=== PATIENT | male | born 1940 | race Caucasian/White ===

== ENCOUNTER 2025-04-30 09:18 | Emergency (ER) | payer MEDICARE, OTHER, SELFPAY ==
--- NOTE | ~2025-04-30 | US_ITS ---
EXAMINATION: US TRIPLEX LOWER EXTREMITY, RIGHT CLINICAL INFORMATION: Edema and pain, right lower extremity COMPARISON: None available. TECHNIQUE: Color-flow triplex imaging with spectral analysis and compression Doppler were performed on the right lower extremity. FINDINGS: Respiratory variation, normal compression and augmented flow are demonstrated in the interrogated right common femoral vein, superficial femoral vein, profunda femoral vein, popliteal vein and midcalf peroneal and posterior tibial venous segments. There is no Hudson's cyst. US/US venous duplex LE RT IMPRESSION: No acute deep venous thrombosis interrogated veins, right lower extremity. Negative for DVT. Electronically signed by: Adam Culver MD 04/30/2025 11:18 AM EDT
[2025-04-30 09:24] VITALS: BP 166/68; PULSE 48; RESP 18; TEMP 36.3; O2SAT 97; BMI 27.7
--- NOTE | 2025-04-30 09:54 | ED_ITS ---
HPI - Extremity Problem General Chief complaint: Extremity Injury, Lower Stated complaint: R leg swelling Time Seen by Provider: 04/30/25 09:52 Source: patient Mode of arrival: ambulatory Limitations: no limitations History of Present Illness ED Provider: Zafar Estrada PA-C HPI Narrative: 84 yo male sent in from Urgent Care for evaluation of RLE redness, firmness and swelling for the last 2 weeks. He states he is very active and exercises 3 days per week. He walks long distances. He has noticed his right lower leg has been more swollen and firm with some slight redness. He states it is not painful. Denies any recent injury, insect bite, scratch to the area. He denies any fevers or chills. No chest pain or SOB. He was sent to r/o DVT. MD Complaint: extremity swelling Onset (ago): week(s) (2) Pain Consistency: constant Location: right and lower extremity Severity scale (1-10): 1 Radiation: none Relieving factors: nothing Exacerbating factors: nothing Associated symptoms: denies other symptoms Related Data Previous Rx's ?Medication ?Instructions ?Recorded cephalexin 500 mg capsule 500 mg PO Q6H 7 days #28 cap s 04/30/25 Allergies Allergy/AdvReac Type Severity Reaction Status Date / Time No Known Allergies Allergy Verified 04/30/25 09:26 Review of Systems 2 Review of Systems: Yes all other systems are reviewed and are negative [facility] Social History Social History Advance Directives: No Advance Directives Information Provided: Yes Physical Exam 2 Exam: Exam: Appearance: Alert. Oriented X3. No acute distress. Head: normocephalic, atraumatic. Eyes: normal to inspection ENT: Pharynx normal. Neck: Normal inspection. no JVD CVS: Bradycardic, regular rhythm. Pulses normal. Respiratory: No respiratory distress. Breath sounds normal. Abdomen: Soft and nontender. +BS x4 Skin: Skin warm and dry. Normal skin color. Normal skin turgor. No rashes. Extremities: right lower leg with mild generalized, nonpitting swelling, nontender to palpation, mild erythema, no warmth. dry flaking skin bilateral lower legs. no calf tenderness bilaterally. Neuro/psych: Oriented X 3. No motor deficit. No sensory deficit. CN II-XII intact. Normal speech and cognition. steady gait Vital Signs: Vital Signs: Last Vital Signs Temp 97.6 F 04/30/25 11:25 Pulse 47 L 04/30/25 11:25 Resp 16 04/30/25 11:25 BP 156/55 H 04/30/25 11:25 Pulse Ox 98 04/30/25 11:25 O2 Del Method Room Air 04/30/25 11:25 BMI result Body Mass Index 27.7 Medical Decision Making Medical Decision Making [facility] Narrative: 84 yo male presenting to the ER from Urgent Care for evaluation of RLE redness and swelling x2 weeks. Exam showing mild erythema and edema. US showed no DVT will treat for cellulitis. no MRSA risk, single coverage with keflex ok he has been bradycardic here wtih HR 48. BP stable 150-160s. he is asymptomtatic and feels well. he states he exercises several times per week. he cannot recall if he has had low heart rates in the past. denies cardiac issues EKG here with sinus bradycardia. no evidence of AV block. given he is asymptomatic with stable BP, comfortable with discharge home. he will f/u with his PCP. return precautions discussed and patient expressed clear understanding Differential Diagnosis Differential Diagnoses: The differential diagnosis associated with the presentation includes cellulitis, DVT, PVD, hematoma, soft tissue injury, lymphedema, tick borne illness sinus bradycardia, AV block, SSS Admission/Observation Consideration of admission/observation: Escalation of care including admission/observation considered Lab Data [facility] Lab Attestation statement: I reviewed the patient's lab results. anemia, elevated bicarb 04/30/25 09:50 04/30/25 09:50 Labs: Lab Results 04/30/25 Range/Units 09:50 WBC 5.0 (4.8-10.8) X10*3/uL RBC 5.15 (4.60-5.80) X10*6/uL Hgb 11.3 L (14.0-18.0) g/dl Hct 35.5 L (42.0-52.0) % MCV 68.9 L (80.0-98.0) fL MCH 21.9 L (27.0-33.0) pg MCHC 31.8 (31.0-36.0) g/dl RDW 15.8 (11.0-16.0) % Plt Count 185 (160-400) X10*3/uL MPV 11.3 (9.4-12.4) fL Immature Gran % (Auto) 0.2 (0.0-0.4) % Neut % (Auto) 62.6 (45-73) % Lymph % (Auto) 22.2 (20-40) % [place] % (Auto) 10.0 (2-11) % Eos % (Auto) 4.2 H (0-4) % Baso % (Auto) 0.8 (0-2) % Lymph # (Auto) 1.1 L (1.2-4.9) X10*3/uL [place] # (Auto) 0.5 (0.1-1.2) X10*3/uL Eos # (Auto) 0.2 (0.0-0.4) X10*3/uL Baso # (Auto) 0.0 (0.0-0.2) X10*3/uL Abs Immat Gran (auto) 0.01 (0.00-0.03) X10*3/uL Absolute Neuts (auto) 3.1 (2.0-8.3) x10*3/uL Absolute Nucleated RBC 0.000 (0.0-0.012) X10*3/uL Nucleated RBC % (auto) 0.0 (0.0-0.2) /100WBC Sodium 142 (135-145) mmol/L Potassium 4.0 (3.3-5.1) mmol/L Chloride 106 (96-108) mmol/L Carbon Dioxide 30 H (22-29) mmol/L Anion Gap 10 L (12-20) BUN 17 H (9-16) mg/dL Creatinine 1.16 (0.5-1.4) mg/dL Estim Creat Clear Calc 45.8 Estimated GFR > 60 Random Glucose 170 H (60-115) mg/dL Calcium 9.6 (8.4-10.2) mg/dL Total Bilirubin 0.9 (0.0-1.0) mg/dL AST 31 (5-37) U/L ALT 27 (0-40) U/L Alkaline Phosphatase 63 (39-117) U/L Total Protein 6.9 (6.5-8.0) g/dL Albumin 4.1 (3.5-5.0) g/dL Independent Interpretation I performed an independent interpretation of an: EKG and Ultrasound Interpretation: ekg w/ sinus bradycardia, HR 46 bpm, normal AK interval, no ectopy, no ST segment elevations or depressions US without evidence of DVT Radiology Impression Discussion of test interpretation with radiology: I have reviewed the radiologist's reading. Prescription Management I considered prescription management with: Antibiotic and Other (anticoagulant) Critical Care Time Critical Care Time Critical Care Time: No Discharge Plan Discharge Clinical Impression: Cellulitis of right lower extremity, Bradycardia, sinus Patient Disposition: Home, Self-Care Instructions: Cellulitis (ED), Bradycardia (ED) Additional Instructions: Your ultrasound was negative for blood clot in your leg Take the prescribed antibiotics as directed for mild cellulitis (infection of the skin), complete the entire course and do not miss any doses Keep your leg wrapped in the provided GLORY wrap during the day. You can take it off at night. Elevate your right leg when resting You were found to have a low heart rate. You have no symptoms of this (dizziness, lightheadeness, chest pain, shortness of breath) - if you develop these symptoms call 911 or come back to the ER for further evaluation Follow up with your primary care doctor as soon as you can If you develop new or worsening symptoms call 911 or come back to the ER for further evaluation. Prescriptions: New cephalexin 500 mg capsule 500 mg PO Q6H 7 Days Qty: 28 0RF Referrals: Maurisio Hubbard MD [Primary Care Provider, Internal Medicine] Interventions: ED Discharge Assessment Last Done: 04/30/25 12:11 Discharge Date/Time: 04/30/25 12:11 Print Language: Turkmen
--- NOTE | 2025-04-30 09:54 | ECG_ITS ---
Test Reason : POSSIBLE DVT Blood Pressure : */* mmHG Vent. Rate : 46 BPM Atrial Rate : 46 BPM P-R Int : 178 ms QRS Dur : 90 ms QT Int : 456 ms P-R-T Axes : 19 -9 11 degrees QTcB Int : 399 ms Sinus bradycardia Minimal voltage criteria for LVH, may be normal variant ( R in aVL ) Abnormal ECG No previous ECGs available Referred By: Halina Estrada Electronically Signed By: Ernie Titus
[2025-04-30 09:56] LABS: MANUAL DIFF FLAG NO
[2025-04-30 09:59] LABS: Hematocrit 35.5 % (42.0-52.0); Hemoglobin 11.3 g/dl (14.0-18.0); Imm Gran Abs Auto 0.01 X10*3/uL (0.00-0.03); Imm Gran Pct Auto 0.2 % (0.0-0.4); Lymphocytes Absolute Auto 1.1 X10*3/uL (1.2-4.9); Mean Corpuscular HGB Conc 31.8 g/dl (31.0-36.0); Mean Corpuscular Hemoglobin 21.9 pg (27.0-33.0); Mean Corpuscular Volume 68.9 fL (80.0-98.0); NRBC Abs Auto 0.000 X10*3/uL (0.0-0.012); NRBC Pct Auto 0.0 /100WBC (0.0-0.2); Platelet Count 185 X10*3/uL (160-400); Red Blood Count 5.15 X10*6/uL (4.60-5.80); White Blood Count 5.0 X10*3/uL (4.8-10.8)
[2025-04-30 10:11] LABS: Alanine Aminotransferase 27 U/L (0-40); Albumin Level 4.1 g/dL (3.5-5.0); Alkaline Phosphatase 63 U/L (39-117); Anion Gap 10 (12-20); Aspartate Amino Transferase 31 U/L (5-37); Blood Urea Nitrogen 17 mg/dL (9-16); Calcium 9.6 mg/dL (8.4-10.2); Carbon Dioxide 30 mmol/L (22-29); Chloride 106 mmol/L (96-108); Creatinine Clr Calc Pharmacy 45.8; Estimated Glomerular Filt Rate > 60; Potassium 4.0 mmol/L (3.3-5.1); Sodium 142 mmol/L (135-145); Total Protein 6.9 g/dL (6.5-8.0)
--- NOTE | 2025-04-30 10:59 | PC.NURSE ---
US at bedside
--- OUTSIDE RECORDS SUMMARY | 2025-04-30 11:13 | XMS_ITS | Encounter Summary ---
Author Organization [facility] Address [address] [place] [address] Phone Care Team Providers Care Boiler House Supervisor Name Role Phone Maurisio Hubbard MD Unavailable [phone] Bianka Shipley ASSISTANT ASSOCIATE PROFESSOR Unavailable [phone] Maurisio Hubbard MD Primary Care Provider [phone] Maurisio Hubbard MD Unavailable [phone] Rocael Saxena MD Unavailable Maurisio Hubbard MD Primary Care Provider [phone] Rocael Saxena MD Unavailable Encounter Details Date Type Department Care Team (Latest Contact Info) Description 02/21/2018 Transcribe Orders [facility] [address] [place], [place] [id number] Mauriiso Hubbard MD [address] [place], [place] [id number] [email or web address] Pure hypercholesterolemia (Primary Dx); Essential hypertension, benign Social History Tobacco Use Types Packs/Day Years Used Date Smoking Tobacco: Former Cigarettes 0.5 5 Smokeless Tobacco: Never Comments:quit in 1993 Alcohol Use Standard Drinks/Week Comments Yes 7 (1 standard drink = 0.6 oz pur e alcohol) Sex and Gender Information Value Date Recorded Sex Assigned at Not on file Legal Sex Male 10:11 PM EDT Gender Identity Not on file Sexual Orientation Not on file documented as of this encounter Plan of Treatment Upcoming Encounters Date Type Department Care Team (Late st Contact Info) Description 07/10/2025 10:30 AM EDT Office Visit [facility] Internal Medicine [address] [place] [address] Maurisio Hubbard MD [address] [place] [address] [email or web address] documented as of this encounter Results * Urinalysis (02/21/2018 8:51 AM EDT) COLOR Yellow Yellow [facility] CLARITY Clear [facility] GLUCOSE Negative Negative [facility] BILI Negative Negative [facility] KETONES Negative Negative [facility] SPECIFIC GRAVITY 1.025 1.005 - 1.030 [facility] BLOOD Negative Negative [facility] PH 6.0 5.0 - 8.0 [facility] Protein-UA Negative Negative [facility] NITRITE Negative Negative [facility] Leukocyte esterase, ur Negative Negative [facility] Urine (Urine) 02/21/2018 8:5 1 AM EDT 02/21/2018 8:53 AM EDT us Maurisio Hubbard MD URINE ORDERABLES Final Result [facility] [address] [place] [address] * Microalbumin/creatinine ratio, random urine (02/21/2018 8:51 AM EDT) URINE MICROALBUMIN 0.9 0 - 2.3 mg/dL [facility] URINE CREATININE 128 mg/dL [facility] MICROALB/CRE RATIO NOT CALCULATED 0 - 20 mg/g Cre [facility] Comment:due to Microalbumin <1.2 Urine (Urine) 02/21/2018 8:5 1 AM EDT 02/21/2018 8:53 AM EDT us Maurisio Hubbard MD URINE ORDERABLES Final Result Performing Organization Address [facility]/ZIP Co de Phone Number [address] [address] * (ABNORMAL) Hemoglobin A1c (02/21/2018 8:28 AM EDT) HEMOGLOBIN A1C 6.4(H) 4.3 - 5.8 % [facility] Blood 02/21/2018 8:28 AM EDT 02/21/2018 8:34 AM EDT us Maurisio Hubbard MD LAB BLOOD ORDERABLES Final Re sult Performing Organization Address [facility]/ZIP Co de Phone Number [address] [address] * TSH (02/21/2018 8:28 AM EDT) Pathologist [facility] TSH 2.62 0.27 - 4.20 uIU/mL [facility] Blood 02/21/2018 8:28 AM EDT 02/21/2018 8:34 AM EDT Maurisio Hubbard MD LAB BLOOD ORDERABLES Final Re sult Performing Organization Address [facility] Co de Phone Number [address] [address] * (ABNORMAL) Comprehensive metabolic panel (02/21/2018 8:28 AM EDT) SODIUM 146 133 - 146 mmol/L [facility] POTASSIUM 4.5 3.3 - 5.1 mmol/L [facility] CHLORIDE 104 96 - 108 mmol/L [facility] CO2 29 21 - 35 mmol/L [facility] BUN 15 6 - 19 mg/dL [facility] CREATININE 1.10 0.5 - 1.5 mg/dL [facility] GLUCOSE 122(H) 70 - 99 mg/dL [facility] ALBUMIN 4.2 3.9 - 4.8 g/dL [facility] TOTAL PROTEIN 7.4 6.5 - 8.0 g/dL [facility] CALCIUM 8.9 8.4 - 10.3 mg/dL [facility] ALKALINE PHOSPHATASE 73 39 - 117 U/L [facility] TOTAL BILIRUBIN 0.8 0.0 - 1.2 mg/dL [facility] AST 29 0 - 37 U/L [facility] ALT 27 0 - 40 U/L [facility] GLOBULIN 3.2 1 - 4.8 g/dL [facility] EGFR 65 >59 mL/min/1.7 3m2 [facility] Comment:If patient is black, multiply result by 1.159. The eGFR calculation has changed from the MDRD equation to the CKD-EPI equation as of November 20, 2017. ANION GAP 18 10 - 20 mmol/L [facility] Blood 02/21/2018 8:28 AM EDT 02/21/2018 8:34 AM EDT us Maurisio Hubbard MD LAB BLOOD ORDERABLES Final Re sult Performing Organization Address City/[facility] Co de Phone Number [address] [address] * (ABNORMAL) Lipid panel (02/21/2018 8:28 AM EDT) HDL 50 mg/dL [facility] Comment: Interpretation: Risk Level Males Decreased >45 mg/dL Average 40-45 mg/dL Increased <40 mg/dL CHOLESTEROL 110 0 - 240 mg/dL [facility] TRIGLYCERIDES 55 30 - 160 mg/dL [facility] LDL 49(L) 50 - 129 mg/dL [facility] Comment: LDL levels in terms of risk for coronary heart disease: <100 mg/dL: Optimal 100-129 mg/dL: Near or above optimal 130-159 mg/dL: Borderline high 160-189 mg/dL: High >190 mg/dL: Very High CARDIAC RISK RATIO 2.2(L) 3.4 - 5.0 [facility] Blood 02/21/2018 8:28 AM EDT 02/21/2018 8:34 AM EDT Maurisio Hubbard MD LAB BLOOD ORDERABLES Final Re sult Performing Organization Address City/State/[facility] Co de Phone Number [address] [address] * (ABNORMAL) CBC (02/21/2018 8:28 AM EDT) WBC 4.83 3.40 - 11.20 K/uL [facility] RBC 6.08(H) 4.50 - 5.50 M/uL [facility] HGB 12.6(L) 13.0 - 17.0 g/dL [facility] HCT 41.6 40.0 - 51.0 % [facility] PLT 203 130 - 400 K/uL [facility] MCV 68.4(L) 79.0 - 98.0 fL [facility] MCH 20.7(L) 27.0 - 34.8 pg [facility] MCHC 30.3(L) 31.5 - 36.0 g/dL [facility] RDW 16.0(H) 10.8 - 14.6 % [facility] MPV 11.6 9.4 - 12.4 [facility] NRBC 0.00 /100 WBCs [facility] ABSOLUTE NRBC 0.00 K/uL [facility] Blood 02/21/2018 8:28 AM EDT 02/21/2018 8:34 AM EDT us Maurisio Hubbard MD LAB BLOOD ORDERABLES Final Re sult Performing Organization Address [facility] Co de Phone Number [address] [address] documented in this encounter Visit Diagnoses Diagnosis Pure hypercholesterolemia- Primary Essential hypertension, benign documented in this encounter Care Teams Boiler House Supervisor Relationship Specialty Start Date End Date Maurisio Hubbard MD [address] [place] [address] [email or web address] PCP - General 08/16/17 08/16/20 Maurisio Hubbard MD [address] [place] [address] PCP - General Internal Medicine 08/17/20 Maurisio Hubbard MD [address] [place] [address] Historical LMR Provider 07/07/17 01/18/21 Bianka Shipley NP [address] [place] [address] [address] [place] [address] Historical LMR Provider 07/07/17 01/18/21 Maurisio Hubbard MD [address] [place] [address] Insurance Assigned Provider 12/22/23 Rocael Saxena MD [address] [place] [address] Ophthalmology 01/13/20 02/28/24 Rocael Saxena MD [address] [place] [address], [address] [address] Ophthalmology 02/29/24 documented as of this encounter Additional Source Comments The information contained in this document represents components of the legal health record. It is not the complete legal health record.[facility]
--- OUTSIDE RECORDS SUMMARY | 2025-04-30 11:13 | XMS_ITS | Patient Health Record ---
Author Organization [facility] Address [address] [place] [address] Care Team Providers Care Home Appliance Tech Name Role Phone Maurisio Hubbard MD Primary Care Provider Ryan Arzola Jr Unavailable Reason For Referral No Information Medications Medication SIG (Take, Route, Frequency, Duration) Notes Start Date End Date Status Valsartan 160 MG TAKE 1 TABLET BY FREDY EVERY DAY Oral for 90 Active Tamsulosin HCl 0.4 MG Orally Once a day Active Colyte with Flavor Packs 240 GM As directed Orally Over the specified time. for 1 day(s) Active Folic Acid 400 MCG 1 capsule Orally Onc e a day Active amLODIPine Besylate 5 MG Orally Active Aspir-81 81 MG 1 tablet Orally Once a day Active Atorvastatin Calcium 20 MG Orally Once a day Active Social History Alcohol Screen Question Answer Notes Did you have a drink contain ing alcohol in the past year? Yes How often did you have a dri nk containing alcohol in the past year? 2 to 3 times a week (3 points) How many drinks did you have on a typical day when you were drinking in the past year? 1 or 2 drinks (0 point) How often did you have 6 or more drinks on one occasion in the past year? 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 (Z79.82) Active confirmed Plan Of Treatment Future Test Test Name Order Date COLONOSCOPY 04/06/2012 Insurance Providers Payer Name Payer Address Payer Phone Subscriber Number Group Number Insured Name Patient Relationship to Insured Coverage Start Date Coverage End Date MEDICARE OF [place] [address] [place] [address] [id number] REYMUNDO FERRARI Self - patient is the insured [employer] [address] [place] [address] [id number] REYMUNDO FERRARI Self - patient is the insured Medical (General) History Medical History History ICD Code colonoscopy 08/15/12, 6 mm tubular adeno ma. hypertension BPH elevated cholesterol Surgical History Surgery Date(Month/Year) removal of an ear cyst
[2025-04-30 11:25] VITALS: BP 156/55; PULSE 47; RESP 16; TEMP 36.4; O2SAT 98
[2025-04-30 12:11] VITALS: BP 156/55; PULSE 47; RESP 16; TEMP 36.4; O2SAT 98
== END 2025-04-30 12:11 | disposition home or self-care (01) ==
PROVIDERS: Emergency Provider Emergency Medicine; PCP Internal Medicine
DX: L03.115 Cellulitis of right lower limb (principal); R00.1 Bradycardia, unspecified; M79.604 Pain in right leg
CPT/HCPCS: 36415; 80053; 85025; 93005; 93971; 99284

== ENCOUNTER → 2025-04-30 09:29 | Outpatient (BNV) | payer MEDICARE, OTHER, SELFPAY | PROVIDERS: Emergency Provider Emergency Medicine; PCP Internal Medicine; Visit Provider Radiology Diagnostic Radiology | DX: R22.41 Localized swelling, mass and lump, right lower limb (principal) | CPT/HCPCS: 93971 ==

== ENCOUNTER → 2025-04-30 09:54 | Outpatient (BNV) | payer MEDICARE, OTHER, SELFPAY | PROVIDERS: Emergency Provider Emergency Medicine; PCP Internal Medicine; Visit Provider Internal Medicine Cardiovascular Disease | DX: R00.1 Bradycardia, unspecified (principal) | CPT/HCPCS: 93010 ==

== ENCOUNTER 2025-06-25 09:28 | Emergency (ER) | payer MEDICARE, OTHER, SELFPAY ==
--- NOTE | ~2025-06-25 | XR_ITS ---
EXAMINATION: XR LUMBOSACRAL SPINE CLINICAL INFORMATION: low back pain COMPARISON: None available. TECHNIQUE: Three views of the lumbosacral spine. FINDINGS: Small vestigial ribs are present at L1. Mild atherosclerotic calcification is present in the aorta. No acute injuries mild disc space narrowing. L1-2: There is mild disc space narrowing. L2-3 demonstrated subtle retrolisthesis and anterior osteophytes. L3-4 There is mild grade 1 retrolisthesis. L4-5: Unremarkable. L5-S1: Unremarkable. XR/XR lumbar spine 2-3V IMPRESSION: Mild degenerative changes with grade 1 retrolisthesis at L3-4. Electronically signed by: Ezequiel Santana MD 06/25/2025 11:22 AM EDT
[2025-06-25 09:29] VITALS: BP 185/77; PULSE 53; RESP 18; TEMP 36.3; O2SAT 98; BMI 26.5
--- NOTE | 2025-06-25 10:17 | ED.BACK ---
HPI - Back Pain/Injury General Chief Complaint: Back Pain/Injury Stated Complaint: Lower back pain Time Seen by Provider: 06/25/25 10:08 Source: patient Mode of arrival: ambulatory Limitations: no limitations History of Present Illness ED Provider: HPI Narrative: 84-year-old male, presenting with lower back pain for the past 3-4 days, does not recall any injury, except for moving around some chairs, some of the pain shoots down his left leg, he was recently treated with the antibiotics for venous stasis dermatitis or cellulitis bilateral lower extremities, no fevers or chills, no abdominal pain no dysuria no hematuria, has had no syncopal episodes. Related Data Previous Rx's ?Medication ?Instructions ?Recorded cephalexin 500 mg capsule 500 mg PO Q6H 7 days #28 caps 04/30/25 acetaminophen 500 mg capsule 1,000 mg (2 x 500 mg) PO Q6H PRN 06/25/25 pain 5 days #20 caps lidocaine 4 % topical patch 1 patch topical DAILY PRN pain 7 06/25/25 (Aspercreme (lidocaine)) days #10 ea methylprednisolone 4 mg tablets in 4 mg PO DAILY #21 ea 06/25/25 a dose pack (Medrol (Keith)) Allergies Allergy/AdvReac Type Severity Reaction Status Date / Time No Known Allergies Allergy Verified 06/25/25 09:34 Review of Systems Constitutional: Constitutional: Reports as per [facility] [place] Social History Social History Smoked in Last 30 Days: No Use of substances other than those prescribed or required for medical reasons: No Advance Directives: No Advance Directives Information Provided: Yes Do you have a plan to hurt others: No Plan Physical Exam Vital Signs: Vital Signs: Last Vital Signs Temp 97.3 F 06/25/25 09:29 Pulse 53 06/25/25 09:29 Resp 18 06/25/25 09:29 BP 185/77 H 06/25/25 09:29 Pulse Ox 98 06/25/25 09:29 O2 Del Method Room Air 06/25/25 09:29 BMI result Body Mass Index 26.5 Const: Other: General: ?Appears of stated age ? ?CV: RRR, no obvious murmurs appreciated ? ?Resp: ?No wheezing rales rhonchi no stridor moving air well ? Abd: ?Bowel sounds are present, no tenderness no rebound no rigidity, no pulsatile masses, femoral pulses +2 bilaterally, no CVA tenderness ? ?MSK: FROM, strength 5/5 all extremities, chronic venous stasis without cellulitis, residual right lower extremity edema, tenderness along left paraspinal without midline tenderness or step-offs no rashes to the area ? Skin: No obvious cellulitis ? ?Neuro: ?Alert and oriented x3, moving upper and lower extremities symmetrically, no obvious facial asymmetry noted, cranial nerves 2-12 intact Medications Administered Discontinued Medications Generic Name Dose Route Start Last Admin Trade Name Sukhwinder PRN Reason Stop Dose Admin Acetaminophen 975 mg 06/25/25 10:42 06/25/25 10:56 Acetaminophen 325 Mg Tablet PO 06/25/25 10:43 975 mg ONCE ONE Administration Ketorolac Tromethamine 15 mg 06/25/25 10:42 06/25/25 10:56 Ketorolac Tromethamine 15 Mg/Ml Vial IM 06/25/25 10:43 15 mg ONCE ONE Administration Medical Decision Making Medical Decision Making [facility] Narrative: 10:46 AM 06/25/2025 (Dr. Guillaume Kwan): 84-year-old male presenting with back pain, I did make sure that he has no AAA or obvious hydronephrosis on point of care ultrasound, after that was confirmed I we will initiate management with anti-inflammatories, some steroids, acetaminophen in the patch, we will obtain x-ray to evaluate for any obvious compression fractures though he has had no injuries, or destructive lesions, if workup is negative anticipating discharge Differential Diagnosis Differential Diagnoses: The differential diagnosis associated with the presentation includes (Renal colic, AAA, musculoskeletal pain, cauda equina, diskitis osteomyelitis, spinal epidural abscess) Admission/Observation Consideration of admission/observation: Escalation of care including admission/observation considered Independent Interpretation I performed an independent interpretation of an: Plain X-Ray (Minimal joint space narrowing in the upper lumbar spine, without destructive lesions) Radiology Impression Discussion of test interpretation with radiology: I have reviewed the radiologist's reading. Radiologist Impression: L1-2: There is mild disc space narrowing. L2-3 demonstrated subtle retrolisthesis and anterior osteophytes. L3-4 There is mild grade 1 retrolisthesis. L4-5: Unremarkable. L5-S1: Unremarkable. XR/XR lumbar spine 2-3V IMPRESSION: Mild degenerative changes with grade 1 retrolisthesis at L3-4. Tests considered The following testing was considered but not selected: CT lumbar spine Prescription Management I considered prescription management with: Pain Medication Procedures Ultrasound ED POC Ultrasound: EMERGENCY ULTRASOUND REPORT?Point of Care Aorta (AAA) Indication:? Low back pain Abdominal Aorta:? ?Proximal Abdominal Aorta: Trans Plane AP 1.8cm, Width1.75 cm, Sag Plane AP 1.78cm.? ?Distal Abdominal Aorta:? Trans Plane AP 1.8cm, Width1.75 cm, Sag Plane AP 1.78cm.? Free Fluid:?none Impression: No evidence for AAA Performed by: Dr. Kwan EMERGENCY ULTRASOUND REPORT?Point of Care Urinary Tract (Renal) Indication: Low back pain Bladder:? 50 cc urine approximately Right Kidney:? No hydronephrosis, no cysts Left Kidney: No hydronephrosis, no cysts Impression:? No hydronephrosis, no urinary retention, no obvious cysts Discharge Plan Discharge Clinical Impression: Lumbar radiculopathy Patient Disposition: Home, Self-Care Additional Instructions: Continue lidocaine patches to the area that hurts the most, I would like you to continue a steroid pack that I prescribed, and you can take Tylenol 975 mg every 6 hours for additional pain control, you had ultrasound of the aorta, your kidneys and x-rays of the back, you have minimal arthritic changes, I would like you to follow up with the PCP, if you have worsening issues concerns come back to the ER, spiking fevers, inability to urinate, numbness in the legs should prompt you to come back to the ER Prescriptions: New lidocaine [Aspercreme (lidocaine)] 4 % adhesive patch,medicated 1 patch topical DAILY PRN (Reason: pain) 7 Days Qty: 10 0RF methylprednisolone [Medrol (Keith)] 4 mg tablets,dose pack 4 mg PO DAILY Qty: 21 0RF Rx Instructions: Day 1: 24 mg on day 1 administered as 8 mg before breakfast, 4 mg after lunch, 4 mg after supper, and 8 mg at bedtime or 24 mg as a single dose or divided into 2 or 3 doses upon initiation. Day 2: 20 mg on day 2 administered as 4 mg before breakfast, 4 mg after lunch, 4 mg after supper, and 8 mg at bedtime. Day 3: 16 mg on day 3 administered as 4 mg before breakfast, 4 mg after lunch, 4 mg after supper, and 4 mg at bedtime. Day 4: 12 mg on day 4 administered as 4 mg before breakfast, 4 mg after lunch, and 4 mg at bedtime. Day 5: 8 mg on day 5 administered as 4 mg before breakfast and 4 mg at bedtime. Day 6: 4 mg on day 6 administered as 4 mg before breakfast. acetaminophen 500 mg capsule 1,000 mg PO Q6H PRN (Reason: pain) 5 Days Qty: 20 0RF No Action cephalexin 500 mg capsule 500 mg PO Q6H 7 Days Qty: 28 0RF Referrals: Maurisio Hubbard MD [Primary Care Provider, Internal Medicine] - 2 weeks Clinical Impression: Lumbar radiculopathy Print Language: Khmer
--- NOTE | 2025-06-25 10:59 | PC.NURSE ---
pt a&ox3, rr equal/non labored, pt c/o 8/10 lower back pain, pt medicated per order, decadron not available in ED-pharmacy called to bring to ED, additionally pt to have XR of back will apply lido patch upon his return.
[2025-06-25 12:14] VITALS: BP 133/56; PULSE 50; RESP 16; TEMP 36.6; O2SAT 95
--- NOTE | 2025-06-25 12:17 | PC.NURSE ---
pharmacy tiger texted again for medication, will administer and discharge when available
[2025-06-25] MEDS: Lidocaine 4 % Patch ADH..PATCH 1 PATCH TRANSDERMA (12:35)
[2025-06-25 12:44] VITALS: BP 133/56; PULSE 50; RESP 16; TEMP 36.6; O2SAT 95
== END 2025-06-25 12:44 | disposition home or self-care (01) ==
PROVIDERS: Emergency Provider Emergency Medicine; PCP Internal Medicine
DX: M54.16 Radiculopathy, lumbar region (principal); M43.16 Spondylolisthesis, lumbar region
CPT/HCPCS: 72100; 76775; 96372; 99284; J1885; J8540

== ENCOUNTER → 2025-06-25 10:42 | Outpatient (BNV) | payer MEDICARE, OTHER, SELFPAY | PROVIDERS: Emergency Provider Emergency Medicine; PCP Internal Medicine; Visit Provider Radiology Diagnostic Radiology | DX: M51.360 Other intervertebral disc degeneration, lumbar region with discogenic back pain only (principal) | CPT/HCPCS: 72100 ==

== ENCOUNTER 2025-07-07 10:15 | Outpatient (AMB) | payer MEDICARE, OTHER, SELFPAY ==
[2025-07-07 10:23] VITALS: BP 122/60; PULSE 69; TEMP 37; O2SAT 96; BMI 26.0
--- NOTE | 2025-07-07 10:23 | AM.OFFWIN_ITS ---
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 The patient is an 84-year-old male presenting with a cough with mucus production. Upper Respiratory Tract Infection: - The patient reports a cough that has f ormed mucus, which he needs to expectorate regularly. - Symptoms have persisted for approximat monique 10 days. - Has associated sore throat - Denies fever, chest pain, N/V/D, or sh ortness of breath. - The patient experienced nasal drainage but denies nasal congestion, sinus pressure, or facial pain. - The patient has been taking over-the-c ounter medications such as Dayquil - He reports an upcoming appointment wit h his PCP tomorrow Antibiotic Therapy History for Suspected Lower Extremity Infection: - The patient previously completed a cou rse of Keflex, an antibiotic, for a suspected infection in the lower extremities. - He received the antibiotic for seven d ays and has since completed the therapy. - There are no current reports of lower extremity symptoms. Constitutional: Negative for fevers, chills, fatigue HENT: Positive for congestion, rhinorrhea, sore throat. Negative for sinus pain, sinus pressure. Respiratory: Positive for cough. Negative for shortness of breath, chest tightness, wheezing Cardiac: Negative for chest pain. Gastrointestinal: Negative for abdominal pain, nausea, vomiting,diarrhea General Appearance: Normal appearance, well developed. No acute distress Head: Normocephalic, atraumatic ENT: Mild nasal drainage. No congestion. External ears and ear canals normal without erythma or bulging of TM. No erythema or exudates of oropharynx. Pulmonary: No respiratory distress. Speaking in full sentences. Lungs are clear to auscultation bilaterally. No crackles. Musculoskeletal: Moving all extremities spontaneously and against gravity Mental Status: Alert and Oriented x 3 Psychiatric: Normal mood. Normal affect. Physical Exam Vital Signs: Last Vital Signs Temp 98.6 F 07/07/25 10:23 Pulse 69 07/07/25 10:23 BP 122/60 07/07/25 10:23 Pulse Ox 96 07/07/25 10:23 Oxygen Delivery Method Room Air 07/07/25 10:23 BMI result Body Mass Index 26.0 Results AMB Rapid Strep AMB Rapid Strep Negative Last Edit by Judi Rachel CMA on 07/07/25 10: 47 Results Reviewed Results Reviewed: Laboratory Last Values Strep Scn Rapid Clinic Negative 07/07/25 10:37 Assessment & Plan Assessment & Plan (1) Acute respiratory infection: Code(s): J22 - Unspecified acute lower respiratory infection Plan The patient's symptoms are consistent with an upper respiratory tract infection, likely viral in nature. - Strep test in office negative - Low concern for pneumonia- no fevers, chest pain, lungs CTAB, and patient saturating well - Lyhf-afh-tesuxbl Mucinex (guaifenesin) was recommended to aid mucus clearance. - A cough suppressant, was considered but, based on the patient's preference for awaiting his primary care appointment tomorrow, was not prescribed. - Encouraged increased fluid intake and rest. - Patient was advised to monitor for any new complications, such as fever, chest pain, or shortness of breath, which may require reevaluation. Orders: Orders AMB Rapid Strep Screen Today Ivon Sanchez MD Z13.9 - Encounter for screening, unspecified Medications: Discontinued cephalexin Discontinued Reason: Patient Completed Course 500 mg PO Q6H 7 days 28 caps 0RF methylprednisolone (Medrol (Keith)) Day 1: 24 mg on day 1 administered as 8 mg before breakfast, 4 mg after daniel nch, 4 mg after supper, and 8 mg at bedtime or 24 mg as a single dose or divided into 2 or 3 doses upon initiation. Day 2: 20 mg on day 2 administered as 4 mg before breakfast, 4 mg after lunch , 4 mg after supper, and 8 mg at bedtime. Day 3: 16 mg on day 3 administered as 4 mg before breakfast, 4 mg after lunch, 4 mg after supper, and 4 mg at bedtime. Day 4: 12 mg on day 4 administered as 4 mg before breakfast, 4 mg after lunch, and 4 mg at bedtime. Day 5: 8 mg on day 5 administered as 4 mg before breakfast and 4 mg at bedtime. Day 6: 4 mg on day 6 administered as 4 mg before breakfast. Discontinued Reason: Patient Completed Course 4 mg PO DAILY 21 ea 0RF Judi Rachel CMA Coding Level of Care Code New Pt Level 3 (94025) Diagnoses Acute respiratory infection J22
--- OUTSIDE RECORDS SUMMARY | 2025-07-07 12:03 | XMS_ITS | Encounter Summary ---
Author Organization [facility] Address [address] [place] [address] Phone Care Team Providers Care Hand Thermal Cutter Name Role Phone Maurisio Hubbard MD Unavailable [phone] Bianka Shipley HOME EXTENSION AGENT Unavailable [phone] Maurisio Hubbard MD Primary Care Provider [phone] Maurisio Hubbard MD Unavailable [phone] Rocael Saxena MD Unavailable [phone] Maurisio Hubbard MD Primary Care Provider [phone] Rocael Saxena MD Unavailable Encounter Details Date Type Department Care Team (Latest Contact Info) Description 02/21/2018 Transcribe Orders [facility] Laboratory [address], [place] [id number] Maurisio Hubbard MD [address] [place], [place] [id number] [email or web address] Pure hypercholesterolemia (Primary Dx); Essential [...] Care Team (Late st Contact Info) Description 07/08/2025 1:00 PM EDT Office Visit [facility] Internal Medicine [address] [place] [address] Pam Johnson PA-C [address] [place] [address] [email or web address] 07/10/2025 10:30 AM EDT Office Visit [facility] Internal Medicine [address] [place] [address] Maurisio Hubbard MD [address] [place], [place] [id number] [email or web address] documented as of this encounter Results * Urinalysis (02/21/2018 8:51 AM EDT) COLOR Yellow Yellow [facility] CLARITY Clear [facility] GLUCOSE Negative Negative [facility] BILI Negative Negative [facility] KETONES Negative Negative [facility] SPECIFIC GRAVITY 1.025 1.005 - 1.030 [facility] BLOOD Negative Negative [facility] PH 6.0 5.0 - 8.0 [facility] Protein-UA Negative Negative [facility] NITRITE Negative Negative [facility] Leukocyte esterase, ur Negative Negative [facility] Urine (Urine) 02/21/2018 8:5 1 AM EDT 02/21/2018 8:53 AM EDT us Maurisio Hubbard MD URINE ORDERABLES Final Result [facility] [address] [place] [address] * Microalbumin/creatinine ratio, random urine (02/21/2018 8:51 AM EDT) URINE MICROALBUMIN 0.9 0 - 2.3 mg/dL [facility] URINE CREATININE 128 mg/dL [employer] [facility] MICROALB/CRE RATIO NOT CALCULATED 0 - 20 mg/g Cre [facility] Comment:due to Microalbumin <1.2 Urine (Urine) 02/21/2018 8:5 1 AM EDT 02/21/2018 8:53 AM EDT us Maurisio Hubbard MD URINE ORDERABLES Final Result Performing Organization Address [facility] Co de Phone Number [address] [address] * (ABNORMAL) Hemoglobin A1c (02/21/2018 8:28 AM EDT) HEMOGLOBIN A1C 6.4(H) 4.3 - 5.8 % [facility] Blood 02/21/2018 8:28 AM EDT 02/21/2018 8:34 AM EDT us Maurisio Hubbard MD LAB BLOOD ORDERABLES Final Re sult Performing Organization Address [facility] Co de Phone Number [address] [address] * TSH (02/21/2018 8:28 AM EDT) TSH 2.62 0.27 - 4.20 uIU/mL [facility] Blood 02/21/2018 8:28 AM EDT 02/21/2018 8:34 AM EDT us Maurisio Hubbard MD LAB BLOOD ORDERABLES Final Re sult Performing Organization Address [facility] Co de Phone Number [address] [address] * (ABNORMAL) Comprehensive metabolic panel (02/21/2018 8:28 AM EDT) SODIUM 146 133 - 146 mmol/L [facility] POTASSIUM 4.5 3.3 - 5.1 mmol/L [facility] CHLORIDE 104 96 - 108 mmol/L [facility] CO2 29 21 - 35 mmol/L [facility] BUN 15 6 - 19 mg/dL [facility] CREATININE 1.10 0.5 - 1.5 mg/dL [facility] GLUCOSE 122(H) 70 - 99 mg/dL [facility] ALBUMIN 4.2 3.9 - 4.8 g/dL [facility] TOTAL PROTEIN 7.4 6.5 - 8.0 g/dL [facility] CALCIUM 8.9 8.4 - 10.3 mg/dL [facility] ALKALINE PHOSPHATASE 73 39 - 117 U/L [facility] TOTAL BILIRUBIN 0.8 0.0 - 1.2 mg/dL [facility] AST 29 0 - 37 U/L [facility] ALT 27 0 - 40 U/L [facility] GLOBULIN 3.2 1 - 4.8 g/dL [facility] EGFR 65 >59 mL/min/1.7 3m2 [facility] Comment:If patient is black, multiply result by 1.159. The eGFR calculation has changed from the MDRD equation to the CKD-EPI equation as of November 20, 2017. ANION GAP 18 10 - 20 mmol/L [facility] Blood 02/21/2018 8:28 AM EDT 02/21/2018 8:34 AM EDT us Maurisio Hubbard MD LAB BLOOD ORDERABLES Final Re sult [facility] [address] [place], [place] [id number] * (ABNORMAL) Lipid panel (02/21/2018 8:28 AM EDT) HDL 50 mg/dL [facility] Comment: Interpretation: Risk Level Males Decreased >45 mg/dL Average 40-45 mg/dL Increased <40 mg/dL CHOLESTEROL 110 0 - 240 mg/dL [facility] TRIGLYCERIDES 55 30 - 160 mg/dL [facility] LDL 49(L) 50 - 129 mg/dL [facility] Comment: LDL levels in terms of risk for coronary heart disease: <100 mg/dL: Optimal 100-129 mg/dL: Near or above optimal 130-159 mg/dL: Borderline high 160-189 mg/dL: High >190 mg/dL: Very High CARDIAC RISK RATIO 2.2(L) 3.4 - 5.0 C [facility] Blood 02/21/2018 8:28 AM EDT 02/21/2018 8:34 AM EDT us Maurisio Hubbard MD LAB BLOOD ORDERABLES Final Re sult Performing Organization Address City/[facility] Co de Phone Number [address] [address] * (ABNORMAL) CBC (02/21/2018 8:28 AM EDT) WBC 4.83 3.40 - 11.20 K/uL [facility] RBC 6.08(H) 4.50 - 5.50 M/uL [facility] HGB 12.6(L) 13.0 - 17.0 g/dL [facility] HCT 41.6 40.0 - 51.0 % [facility] PLT 203 130 - 400 K/uL [facility] MCV 68.4(L) 79.0 - 98.0 fL [facility] MCH 20.7(L) 27.0 - 34.8 pg [facility] MCHC 30.3(L) 31.5 - 36.0 g/dL [facility] RDW 16.0(H) 10.8 - 14.6 % [facility] MPV 11.6 9.4 - 12.4 fl [facility] NRBC 0.00 /100 WBCs [facility] ABSOLUTE NRBC 0.00 K/uL [facility] Blood 02/21/2018 8:28 AM EDT 02/21/2018 8:34 AM EDT us Maurisio Hubbard MD LAB BLOOD ORDERABLES Final Re sult Performing Organization Address [facility]/ZIP Co de Phone Number [address] [address] documented in this encounter Visit Diagnoses Diagnosis Pure hypercholesterolemia- Primary Essential hypertension, benign documented in this encounter Care Teams Hand Thermal Cutter Relationship Specialty Start Date End Date Maurisio Hubbard MD [address] [place] [address] PCP - General 08/16/17 08/16/20 Maurisio Hubbard MD [address] [place] [address] PCP - General Internal Medicine 08/17/20 Maurisio Hubbard MD [address] [place] [address] Historical LMR Provider 07/07/17 01/18/21 Bianka Shipley NP [address] [place] [address] [address] [place] [address] Historical LMR Provider 07/07/17 01/18/21 Maurisio Hubbard MD [address] [place] [address] Insurance Assigned Provider 12/22/23 Rocael Saxena MD [address] [place] [id number] Ophthalmology 01/13/20 02/28/24 Rocael Saxena MD [address] [place] [id number] Ophthalmology 02/29/24 documented as of this encounter Additional Source Comments The information contained in this document represents components of the legal health record. It is not the complete legal health record.[facility]
--- OUTSIDE RECORDS SUMMARY | 2025-07-07 12:03 | XMS_ITS | Clinical Summary ---
Author Organization [facility] Address [address] [place] [address] Phone Care Team Providers Care Automotive Service Porter Name Role Phone Maurisio Hubbard MD Unavailable [phone] Maurisio Hubbard MD Primary Care Provider [phone] Rocael Saxena MD Unavailable [phone] Allergies Active Allergy Reactions Criticality Noted Date Comments Lisinopril Cough 02/04/2018 Medications aspirin 81 mg chewable tablet Take 1 tablet by mouth daily. Active folic acid (FOLVITE) 400 MCG tablet take 1 tablet by mouth every day 90 tablet 2 024 Active amLODIPine (NORVASC) 5 MG tabletIndications:Essen tial hypertension TAKE 1 TABLET BY MOUTH EVERY DAY 90 tablet 3 025 Active finasteride (PROSCAR) 5 mg tabletIndications:Benig n prostatic hyperplasia with nocturia TAKE 1 TABLET (5 MG TOTAL) BY MOUTH DAILY. 90 tablet 3 025 Active atorvastatin (LIPITOR) 20 MG tabletIndications:Pure hypercholesterolemia TAKE 1 TABLET BY MOUTH EVERY DAY 90 tablet 2 025 Active cephalexin (KEFLEX) 500 MG capsule Take 500 mg by mouth. 025 Active valsartan (DIOVAN) 160 MG tabletIndications:Essen tial (primary) hypertension TAKE 1 TABLET BY MOUTH TWICE A DAY 180 tablet 3 025 Active valsartan (DIOVAN) 160 MG tabletIndications:Essen tial (primary) hypertension take 1 tablet by mouth twice a day 180 tablet 3 024 2024 Discontinued Active Problems Problem Noted Date Diagnosed Date Cellulitis of right lower extremity 05/06/2025 Assessment & Plan (05/12/2025 1:17 PM EDT): Cellulitis resolved following course of Keflex, no additional antibiotics indicated. Advised the continued use of compression socks during the day and leg elevation at rest. He does have some dry flaky skin noted on the right anterior mandujano, likely in the setting of poor blood flow due to the cellulitis, advised the use of Aquaphor, Vaseline, or Aveeno to help moisturize the skin. Assessment & Plan (05/06/2025 10:28 AM EDT): He recently went to the ER for concerns about right lower extremity redness and swelling, DVT negative. Diagnosed with cellulitis and was placed on Keflex 500 mg every 6 hours x 7 days. He has been adhering to the antibiotic regimen and still has 2 and half days left. He has noticed significant improvement of the swelling in his legs but some redness still persist. On exam there is mild erythema along the anterior portion of the right lower extremity without warmth or tenderness to palpation. There is 2+ pitting edema the bilateral lower extremities up to the mid calf. Given that there is no warmth to the redness, I suspect that the cellulitis has greatly improved. He should continue and complete the course of the antibiotic regimen. Will follow-up on Sunday to assess complete resolution of the cellulitis. He continues to have some lower extremity edema on exam, I suspect that this is more chronic in nature. Advised the use of compression socks and leg elevation. Murmur, cardiac 05/06/2025 Assessment & Plan (05/06/2025 10:29 AM EDT): On exam he was noted to have a 2/6 systolic murmur noted along the left sternal border. This was evaluated by Dr. Hubbard in February for which an echo was ordered, patient unsure if he has done this. The order was originally placed to [facility] so I will have my team reach out to their office to see if he completed the echocardiogram. 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 5 mg twice daily, do not drive under the influence of cyclobenzaprine, drowsiness cautions. Patient continues with antihypertensives. Patient can use heat like it 20 minutes on 10 minutes off to van helper in relief of spasm. Time to heal could be 4 to 8 weeks. No heavy lifting please. Anemia 02/05/2018 Beta thalassemia minor 02/05/2018 Essential (primary) hypertension 02/05/2018 Hyperlipidemia 02/05/2018 Nocturia 02/05/2018 Pure hypercholesterolemia 02/05/2018 Type 2 diabetes mellitus without complications 0 02/05/2018 Encounters Date Type Department Care Team Description 07/06/2025 Telephone [facility] Internal Medicine [address] [facility] [place] [address] Maurisio Hubbard MD Cough; Sore Throat 06/26/2025 Orders Only [facility] Internal Medicine [address] [facility] [place] [address] Shivani Aponte MD 06/25/2025 Orders Only [facility] Internal Medicine [address] [facility] [place] [address] Shivani Aponte MD 06/21/2025 Refill [facility] Internal Medicine [address] [facility] [place] [address] Maurisio Hubbard MD Medication Refill 05/12/2025 1:00 PM EDT Office Visit [facility] Internal [facility] [address] [facility] [place] [address] Pam Johnson PA-C Cellulitis of right lower extremity (Primary Dx) 05/07/2025 Telephone [facility] Internal Medicine [address] [place] [address] Senait Lama, dry cleaner apprentice 05/06/2025 10:00 AM EDT Office Visit [facility] Internal Medicine [address] [place] [address] Pam Johnson PA-C Cellulitis of right lower extremity (Primary Dx); Murmur, cardiac 05/01/2025 Orders Only [facility] Internal Medicine [address] [place] [address] Provider, MD Shivani 04/29/2025 Telephone [facility] Internal Medicine [address] [place] [address] Maurisio Hubbard MD Leg Pain from Last 3 Months Immunizations Immunization Administration Dates Next Due COVID-19 (Pre-07/09) [employer] Vaccine, mRNA, PF 12/16/2020,11/25/2020 INFLUENZA, SPLIT VIRUS, TRIV ALENT W/ PRESERVATIVE IM 05/16/2012 Influenza High-Dose Quadriva lent Preservative Free IM 06/06/2021,05/10/2020 Influenza High-Dose Trivalen t Preservative Free IM 06/12/2025,06/06/2024,05/15/2019,05/31,06/29/2016,07/08/2015,06/11/2014 ,05/30/2013 Influenza Quadrivalent Adjuv anted Preservative Free IM 05/29/2023,06/23/2022,06/21/2022 Influenza Trivalent Adjuvant ed Preservative free IM 07/02/2017 Influenza, Unspecified Formulation 05/27,07/26/2011,06/03/2010,12/10,07/02/2009 Pneumococcal conjugate PCV13 06/22/2015 Pneumococcal polysaccharide PPSV23 06/17/2007 Td, unspecified formulation 05/18/2005 Tdap 06/12/2012 Zoster live 10/18/2008 Family History Medical History Relation Comments No Known Problems Father No Known Problems Mother Relation Status Comments Father Mother Social History Tobacco Use Types Packs/Day Years Used Date Smoking Tobacco: Former Cigarettes 0.5 5 0 04/17/1989 - 04/17/1994 Smokeless Tobacco: Never Tobacco Cessation:Counseling Given: Not Answered Comments:quit in 1993 Alcohol Use Standard Drinks/Week Comments Yes 3 (1 standard drink = 0.6 oz pur e alcohol) wine or beer Education Answer Date Recorded Are you interested in more education? Not on britton e 01/12/2023 Are you concerned about learning? Not on file 01/12/2023 No 01/12/2023 No 01/12/2023 Digital Access Answer Date Recorded No 02/10/2023 No 02/10/2023 Reliable internet access at home? Not on file 02/10/2023 Device with a working camera? Not on file Intimate Partner Violence Answer Date R ecorded Denied Basic Needs Not on file 03/03/2025 In the past 12 months have y ou been in a relationship with a person who hurts, threatens, or tries to control you? No 03/03/2025 Worried food would run out Not on file 03/03 In the past 12 months have y ou been in a relationship with a person who hurts, threatens, or tries to control you? No 03/03/2025 Sex and Gender Information Value Date Recorded Sex Assigned at Not on file Legal Sex Male 10:11 PM EDT Gender Identity Not on file Sexual Orientation Not on file Last Filed Vital Signs Vital Sign Reading Time Taken Comments Blood Pressure 128/62 05/12/2025 12:58 PM EDT Pulse 50 05/12/2025 12:58 PM EDT Temperature 35.9 C (96.7 F) 05/12/2025 12:58 PM EDT Respiratory Rate 13 05/12/2025 12:5 8 PM EDT Oxygen Saturation 98% 05/12/2025 12: 58 PM EDT Inhaled Oxygen Concentration - - Weight 75.7 kg (166 lb 12.8 oz) 025 12:58 PM EDT Height 164.8 cm (5' 4.88 ) 05/12/2025 1 2:58 PM EDT Body Mass Index 27.86 05/12/2025 12:58 PM EDT Plan of Treatment Upcoming Encounters Date Type Department Care Team (Late st Contact Info) Description 07/08/2025 1:00 PM EDT Office Visit [facility] Internal Medicine [address] [place], [place] [phone] Pam Johnson PA-C [address] [place] [address] [email or web address] 07/10/2025 10:30 AM EDT Office Visit [facility] Internal Medicine [address] [place], [place] [id number] Maurisio Hubbard MD [address] [place], [place] [id number] [email or web address] Health Maintenance Due Date Last Done Comments ZOSTER VACCINES (2 of 3) 12/13/2008 10/18/2008 RSV VACCINE (1 - 1-dose 75+ series) 2016 Adult Td,Tdap Booster 06/12/2022 06/12/2012, 005 DIABETIC EYE EXAM 08/20/2025 08/20/2024, , 07/04/2021, Additional history exists HEMOGLOBIN A1C 08/29/2025 02/27/2025, 11/2023, 08/24/2023, Additional history exists BLOOD PRESSURE 11/12/2025 05/12/2025 COVID-19 VACCINE ( season) 2025 06/12/2025, 06/27/2024, 06/25/2023, Additional history exists CREATININE LEVEL 02/27/2026 02/27/2025, 11/2023, 08/24/2023, Additional history exists POTASSIUM LEVEL 02/27/2026 02/27/2025, 11/2023, 08/24/2023, Additional history exists DEPRESSION SCREENING 03/03/2026 03/03/2025 PNEUMOCOCCAL VACCINES (50+ years) Completed 06/22/2015, 06/17/2007 INFLUENZA VACCINE Completed 06/12/2025, , 05/29/2023, Additional history exists HEPATITIS A VACCINES Aged Out No long er eligible based on patient's age to complete this topic HIB VACCINES Aged Out No longer eligi ble based on patient's age to complete this topic MENINGOCOCCAL VACCINES (ACWY) Aged Out No longer eligible based on patient's age to complete this topic MENINGOCOCCAL VACCINES (B) Aged Out N o longer eligible based on patient's age to complete this topic Medical Devices Not on file Procedures Procedure Name Priority Date/Time Associated Diagnosis Comments OUTSIDE IMAGING Routine 06/25/2025 2:12 PM EDT OUTSIDE XR SPINE REPORT ONLY Routine 06/25/2025 7:56 AM EDT OUTSIDE US VEINS EXTREMITY LOWER REPORT ONLY Routine 04/30/2025 3:31 PM EDT HEMOGLOBIN A1C Routine 02/27/2025 8:58 AM EDT Type 2 diabetes mellitus without complication, with long-term current use of insulin COMPREHENSIVE METABOLIC PANEL Routine 02/27/2025 8:58 AM EDT Type 2 diabetes mellitus without complication, with long-term current use of insulin Essential (primary) hypertension Anemia, unspecified type DIABETES EYE EXAM FOR RESULT ENTRY ONLY Routine 08/20/2024 from Last 3 Months or Most Recently Relevant to Health Maintenance Results * Outside Imaging Report Only (06/25/2025 2:12 PM EDT) Historical Provider MD PECK XR CHEST Final Res ult * Outside XR Spine Report Only (06/25/2025 7:56 AM EDT) Historical Provider MD PECK XR SPINE Final Res ult * Outside US Veins Extremity Lower Report Only (04/30/2025 3:31 PM EDT) Historical Provider MD PECK US THYROID Final Res ult * (ABNORMAL) Comprehensive metabolic panel (02/27/2025 8:58 AM EDT) SODIUM 139 133 - 146 mmol/L [facility] POTASSIUM 4.2 3.3 - 5.1 mmol/L [facility] CHLORIDE 101 96 - 108 mmol/L [facility] CO2 28 21 - 35 mmol/L [facility] BUN 18 6 - 19 mg/dL [facility] CREATININE 1.10 0.5 - 1.5 mg/dL [facility] GLUCOSE 129(H) 70 - 99 mg/dL [facility] ALBUMIN 4.3 3.9 - 4.8 g/dL [facility] TOTAL PROTEIN 7.4 6.5 - 8.0 g/dL [facility] CALCIUM 10.2 8.4 - 10.3 mg/dL [facility] ALKALINE PHOSPHATASE 76 39 - 117 U/L [facility] TOTAL BILIRUBIN 0.9 0.0 - 1.2 mg/dL [facility] AST 27 0 - 37 U/L [facility] ALT 23 0 - 40 U/L [facility] GLOBULIN 3.1 1 - 4.8 g/dL [facility] EGFR 67 >59 mL/min/1.7 3m2 [facility] Comment:Estimated glomerular filtration rate calculated using the CKD-EPI refit equation. ANION GAP 14 10 - 20 mmol/L [facility] Blood 02/27/2025 8:58 AM EDT 02/27/2025 9:24 AM EDT us Maurisio Hubbard MD LAB BLOOD ORDERABLES Final Re sult Performing Organization Address [facility] Co de Phone Number [address] [address] * (ABNORMAL) Hemoglobin A1c (02/27/2025 8:58 AM EDT) HEMOGLOBIN A1C 6.9(H) 4.3 - 5.8 % [facility] Blood 02/27/2025 8:58 AM EDT 02/27/2025 9:25 AM EDT us Maurisio Hubbard MD LAB BLOOD ORDERABLES Final Re sult Performing Organization Address City/[facility]/ZIP Co de Phone Number [address] [address] * HM DIABETES EYE EXAM FOR RESULT ENTRY ONLY (08/20/2024) EYE EXAM in media EXTERNAL NON-INTERFACED REF LAB us Historical Provider MD HEALTH MAINTENANCE Final Result EXTERNAL NON-INTERFACED REF LAB from Last 3 Months or Most Recently Relevant to Health Maintenance Insurance MEDICARE PART A & B [facility] MEDICARE SUPPLEMENT MEDICARE PART A & B [facility] MEDICARE SUPPLEMENT MEDICARE PART A & B [facility] MEDICARE SUPPLEMENT MEDICARE PART A & B Member Subscriber Plan / Payer (Ef fective 2006-Present) Name:Siddharth Coon Member ID:[id number] Relation to Subscriber:Self Name:Siddharth Coon Subscriber ID:[id number] Payer ID:[id number] Group ID:Not on file Type:Medicare Address: [employer] [facility] [address] [address] [facility] MEDICARE SUPPLEMENT MEDICARE PART A & [place] [facility] [place] [phone] MEDICARE PART A & B [facility] MEDICARE SUPPLEMENT MEDICARE PART A & B [email or web address] MEDICARE SUPPLEMENT MEDICARE PART A & B [employer] MEDICARE SUPPLEMENT MEDICARE PART A & B [facility] MEDICARE SUPPLEMENT Care Teams Automotive Service Porter Relationship Specialty Start Date End Date Maurisio Hubbard MD [address] [place] [address] [email or web address] PCP - General Internal Medicine 08/17/20 Maurisio Hubbard MD [address] [place] [address] [email or web address] Insurance Assigned Provider 12/22/23 Rocael Saxena MD [address] [place], [place] [id number] [place] [address] [email or web address] Ophthalmology 02/29/24 Additional Source Comments The information contained in this document represents components of the legal health record. It is not the complete legal health record.[facility]
--- OUTSIDE RECORDS SUMMARY | 2025-07-07 12:03 | XMS_ITS | Encounter Summary ---
Author Organization [facility] Address [address] [facility] [address] [place] [address] Phone Care Team Providers Care Appeals Court Associate Justice Name Role Phone Maurisio Hubbard MD Unavailable [phone] Maurisio Hubbard MD Primary Care Provider [phone] Rocael Saxena MD Unavailable [phone] Encounter Details Date Type Department Care Team (Late st Contact Info) Description 06/26/2025 Orders Only [facility] Internal Medicine [address] [place] [address] Provider, MD Shivani [address] [place] [address] Social History Tobacco Use Types Packs/Day Years Used Date Smoking Tobacco: Former Cigarettes 0.5 5 0 04/17/1989 - 04/17/1994 Smokeless Tobacco: Never Comments:quit in 1993 Alcohol [...] Description 07/08/2025 1:00 PM EDT Office Visit [facility] Internal Medicine [address] [place] [address] Pam Johnson PA-C [address] [place] [address] [email or web address] 07/10/2025 10:30 AM EDT Office Visit [facility] Internal Medicine [address] [place] [address] Maurisio Hubbard MD [address] [place] [address] documented as of this encounter Procedures Procedure Name Priority Date/Time Associated Diagnosis Comments OUTSIDE XR SPINE REPORT ONLY Routine 06/25/2025 7:56 AM EDT documented in this encounter Results * Outside XR Spine Report Only (06/25/2025 7:56 AM EDT) us Historical Provider MD PECK XR SPINE Final Res ult documented in this encounter Visit Diagnoses Not on filedocumented in this encounter Additional Health Concerns Assessment Noted Time PHQ-2 Depression Total Score: 2 03/03/20 25 11:08 AM EDT documented as of this encounter Care Teams Appeals Court Associate Justice Relationship Specialty Start Date End Date Maurisio Hubbard MD [address] [place] [address] [email or web address] PCP - General Internal Medicine 08/17/20 Maurisio Hubbard MD [address] [place] [address] [email or web address] Insurance Assigned Provider 12/22/23 Rocael Saxena MD [address] [place] [address], [address] [address] [email or web address] Ophthalmology 02/29/24 documented as of this encounter Additional Source Comments The information contained in this document represents components of the legal health record. It is not the complete legal health record.[facility]
--- OUTSIDE RECORDS SUMMARY | 2025-07-07 12:03 | XMS_ITS | Encounter Summary ---
Author Organization [facility] Address [address] [employer] [address] [facility] [address] [place] [address] Phone Care Team Providers Care Quantitative Consultant Name Role Phone Maurisio Hubbard MD Unavailable [phone] Maurisio Hubbard MD Primary Care Provider [phone] Rocael Saxena MD Unavailable [phone] Encounter Details Date Type Department Care Team (Late st Contact Info) Description 06/25/2025 Orders Only [facility] [place] Internal Medicine [address] [place] [address] Provider, MD Shivani [address] [place] [address] Social History Tobacco Use Types Packs/Day [...] Description 07/08/2025 1:00 PM EDT Office Visit [facility] Internal Medicine [address] [place] [address] Pam Johnson PA-C [address] [place] [address] [email or web address] 07/10/2025 10:30 AM EDT Office Visit [facility] Internal Medicine [address] [place] [address] Maurisio Hubbard MD [address] [place] [address] documented as of this encounter Procedures Procedure Name Priority Date/Time Associated Diagnosis Comments OUTSIDE IMAGING Routine 06/25/2025 2:12 PM EDT documented in this encounter Results * Outside Imaging Report Only (06/25/2025 2:12 PM EDT) us Historical Provider MD PECK XR CHEST Final Res ult documented in this encounter Visit Diagnoses Not on filedocumented in this encounter Additional Health Concerns Assessment Noted Time PHQ-2 Depression Total Score: 2 03/03/20 25 11:08 AM EDT documented as of this encounter Care Teams Quantitative Consultant Relationship Specialty Start Date End Date Maurisio Hubbard MD [address] [place] [address] [email or web address] PCP - General Internal Medicine 08/17/20 Maurisio Hubbard MD [address] [place] [address] [email or web address] Insurance Assigned Provider 12/22/23 Rocael Saxena MD [address] [place] [address], [address] [place] [address] [email or web address] Ophthalmology 02/29/24 documented as of this encounter Additional Source Comments The information contained in this document represents components of the legal health record. It is not the complete legal health record.[facility]
--- OUTSIDE RECORDS SUMMARY | 2025-07-07 12:03 | XMS_ITS | Encounter Summary ---
Author Organization [facility] Address [address] [place] [address] Phone Care Team Providers Care Billboard Erector Helper Name Role Phone Maurisio Hubbard MD Unavailable [phone] Maurisio Hubbard MD Primary Care Provider [phone] Rocael Saxnea MD Unavailable [phone] Reason for Visit * Reason Onset Date Comments Cough 07/06/2025 Sore Throat 07/06/2025 Encounter Details Date Type Department Care Team (Late st Contact Info) Description 07/06/2025 Telephone [facility] Internal Medicine [address] [place], [place] [phone] Maurisio Hubbard MD [address] [place] [address] [email or web address] Cough; Sore Throat Social History Tobacco Use Types Packs/Day Years [...] on file documented as of this encounter Progress Notes * Senait Lama RN - 07/06/2025 11:25 AM EDT Spoke to Siddharth. States he has had a cold for about 10 days. States he has a runny nose, sore throat, cough. States the cough is productive, mucus is yellow. No fever. No SOB or chest pain. Has not tested for covid at home. States it's not covid and flu, states everyone around him has this, or something else. Scheduled Sunday with [facility], he is not able to make 8am appt tomorrow. Appreciative of call. * Elsa Hancock - 07/06/2025 10:39 AM EDT Patient called states he has had a cold for about 10 days and has cough, sore throat and post nasaldrip but no fever - please advise [phone] documented in this encounter Plan of Treatment Upcoming Encounters Date Type Department Care Team (Late st Contact Info) Description 07/08/2025 1:00 PM EDT Office Visit [facility] Internal Medicine [address] [place] [address] Pam Johnson PA-C [address] [place] [address] 07/10/2025 10:30 AM EDT Office Visit [facility] Internal Medicine [address] [place] [address] Maurisio Hubbard MD [address] [place] [address] documented as of this encounter Visit Diagnoses Not on filedocumented in this encounter Additional Health Concerns Assessment Noted Time PHQ-2 Depression Total Score: 2 03/03/20 25 11:08 AM EDT documented as of this encounter Care Teams Billboard Erector Helper Relationship Specialty Start Date End Date Maurisio Hubbard MD [address] [place] [address] PCP - General Internal Medicine 08/17/20 Maurisio Hubbard MD [address] [place] [address] Insurance Assigned Provider 12/22/23 Rocael Saxena MD [address] [place] [address], [address] [address] Ophthalmology 02/29/24 documented as of this encounter Additional Source Comments The information contained in this document represents components of the legal health record. It is not the complete legal health record.[facility]
--- OUTSIDE RECORDS SUMMARY | 2025-07-07 12:03 | XMS_ITS ---
Author Name [facility] Organization Unknown Care Team Organization Name Specialty Phone Email Start Date End Da te [facility] 07/02/2025 [facility] 07/01/2025
--- OUTSIDE RECORDS SUMMARY | 2025-07-07 12:04 | XMS_ITS | Patient Health Record ---
Author Organization [facility] Address [address] [place] [address] Care Team Providers Care Side Stitching Machine Operator Name Role Phone Maurisio Hubbard MD Primary Care Provider Ryan Arzola Jr Unavailable [phone] Reason For Referral No Information Medications Medication SIG (Take, Route, Frequency, Duration) Notes Start Date End Date Status Valsartan 160 MG TAKE 1 TABLET BY FREDY TH EVERY DAY Oral; Duration: 90 Active Tamsulosin HCl 0.4 MG Orally Once a day Active Colyte with Flavor Packs 240 GM As directed Orally Over the specified time.; Duration: 1 day(s) Active Folic Acid 400 MCG [...] Problem Status W/U Status Risk Notes Problem Colon cancer screening (804138353) Colon cancer screening (Z12.11) Active confirmed Problem Long-term current use of antiplatelet drug (224657358783524) prison (current) use of aspirin (Z79.82) Active confirmed Plan Of Treatment Future Test Test Name Order Date COLONOSCOPY 04/06/2012 Insurance Providers Payer Name Payer Address Payer Phone Subscriber Number Group Number Insured Name Patient Relationship to Insured Coverage Start Date Coverage End Date MEDICARE OF [place] [address] [place] [address] [id number] REYMUNDO FERRARI Self - patient is the insured ON LICENSE OF [facility] [address] [place] [address] [id number] REYMUNDO FERRARI Self - patient is the insured Medical (General) History Medical History History ICD Code colonoscopy 08/15/12, 6 mm tubular adeno ma. hypertension BPH elevated cholesterol Surgical History Surgery Date(Month/Year) removal of an ear cyst
== END 2025-07-07 11:09 | disposition home or self-care (01) ==
PROVIDERS: PCP Internal Medicine; Visit Provider Family Medicine
DX: J22 Unspecified acute lower respiratory infection (principal)
CPT/HCPCS: 99203

== ENCOUNTER → 2025-07-07 10:15 | Outpatient (BNVA) | payer MEDICARE, OTHER, SELFPAY | PROVIDERS: PCP Internal Medicine; Visit Provider Family Medicine | DX: J22 Unspecified acute lower respiratory infection (principal) | CPT/HCPCS: 87880; 99202 ==

== ENCOUNTER 2025-08-31 09:39 | Outpatient (REF) | payer MEDICARE, OTHER, SELFPAY ==
[2025-08-31 10:00] LABS: MANUAL DIFF FLAG NO
[2025-08-31 10:25] LABS: Hematocrit 36.9 % (42.0-52.0); Hemoglobin 11.1 g/dl (14.0-18.0); Imm Gran Abs Auto 0.01 X10*3/uL (0.00-0.03); Imm Gran Pct Auto 0.2 % (0.0-0.4); Lymphocytes Absolute Auto 1.1 X10*3/uL (1.2-4.9); Mean Corpuscular HGB Conc 30.1 g/dl (31.0-36.0); Mean Corpuscular Hemoglobin 21.1 pg (27.0-33.0); Mean Corpuscular Volume 70.0 fL (80.0-98.0); NRBC Abs Auto 0.000 X10*3/uL (0.0-0.012); NRBC Pct Auto 0.0 /100WBC (0.0-0.2); Platelet Count 231 X10*3/uL (160-400); Red Blood Count 5.27 X10*6/uL (4.60-5.80); White Blood Count 4.5 X10*3/uL (4.8-10.8)
[2025-08-31 10:59] LABS: Alanine Aminotransferase 23 U/L (0-40); Albumin Level 4.1 g/dL (3.5-5.0); Alkaline Phosphatase 75 U/L (39-117); Anion Gap 11 (12-20); Aspartate Amino Transferase 27 U/L (5-37); Blood Urea Nitrogen 23 mg/dL (9-16); Calcium 9.6 mg/dL (8.4-10.2); Carbon Dioxide 28 mmol/L (22-29); Chloride 107 mmol/L (96-108); Estimated Glomerular Filt Rate > 60; Iron 80 mcg/dL (45-160); Percent Iron Saturation 35 % (15-50); Potassium 4.2 mmol/L (3.3-5.1); Sodium 142 mmol/L (135-145); Total Iron Binding Capacity 230 mcg/dL (228-428); Total Protein 6.9 g/dL (6.5-8.0); Unsaturated Iron Binding 150 ug/dL
[2025-08-31 11:00] LABS: Ferritin 54 ng/mL (20-250)
== END 2025-08-31 09:40 | disposition home or self-care (01) ==
LOC: HO.LAB 09:39
PROVIDERS: PCP Internal Medicine; Visit Provider Internal Medicine
DX: D64.9 Anemia, unspecified (principal)
CPT/HCPCS: 36415; 80053; 82728; 83540; 85025